=== PATIENT | female | born 1935 | race Caucasian/White ===

== ENCOUNTER → 2016-04-13 | Outpatient (REF) | payer MEDICARE, OTHER ==
[~2016-04-13] MED LIST: *BLDWK10; *BLDWK2; *BLDWK7; *CXR; *ECHO -; /AMLO25TA OR; /ESOM40CA PO; ACIPHEX PO; ALBU17IN2; ALBUTEROL INHALATION; ALLEGRA; ALLEGRA180 PO; AMLO10TA2 PO; AMO500; AMO500 PO; ARIC5TAB PO; ASP325 PO; ASPI325T PO; ATEN25TA; ATENOL25 PO; ATENOLOL25 PO; ATENOLOL50 PO; AUG875 PO; AXID; BIDITAB PO; BISAC5TA OR; CARDCD300; CELEXA20 PO; COZA50TA18; COZA50TA18 PO; COZAAR50 PO; CRES5TAB PO; DEMA20TA PO; DOXYCYC100; DOXYCYC100 PO; DYAZIDE PO; FLONASESPR NASAL; HYDROCHL12 PO; KLORCON20 PO; LASI40TA; LASIX40 PO; LOPE2CA OR; MONOPRIL10 [, 10/12.5 MG]; NAPROSY500; NASONEX NASAL; NEXIUM40 PO; NORVASC5 PO; PROTONIX40 PO; PROVENTIL INHALATION; PYRIDIU200 PO; REGL10TA6 PO; SPIR25TA2 PO; TAGAMET; TENO25TA; TORS20TA2 PO; TYLE325T5 PO; VENTAER INH; VITA-112 PO; VITA100072 PO; VYTORIN PO; ZEST10TA5; ZOLOFT50 PO; [UNRECOGNIZED DRUG - CODE]; [UNRECOGNIZED DRUG - CODE]; [UNRECOGNIZED DRUG - CODE] PO
[2016-04-13 08:46] LABS: BASO % 0.5 % (0.0-1.0); EOS # 0.3 K/mm3 (0.0-0.50); LARGE UNSTAINED CELL # 0.2 K/mm3 (0.0-0.4); LARGE UNSTAINED CELL % 2.5 % (0.0-4.0); LYMPH # 1.6 K/mm3 (1.5-4.5); LYMPH % 16.4 % (24.0-44.0); MEAN CORPUSCULAR HEMOGLOBIN 27.3 pg (27.0-33.0); MEAN CORPUSCULAR HGB CONC 32.1 g/dl (32.0-36.5); MEAN CORPUSCULAR VOLUME 85.1 fl (80.0-96.0); MONO # 0.6 K/mm3 (0.0-0.8); MONO % 6.5 % (0.0-5.0); NEUTROPHILS # 6.2 K/mm3 (1.8-7.7); NEUTROPHILS % 71.1 % (36.0-66.0); PLATELET COUNT, AUTOMATED 303 k/mm3 (150-450); RED CELL DISTRIBUTION WIDTH 16.8 % (11.5-14.5); WHITE BLOOD COUNT 8.7 K/mm3 (4.0-10.0)
[2016-04-13 09:31] LABS: CALCIUM LEVEL 8.8 MG/DL (8.8-10.2); CREATININE FOR GFR 1.84 MG/DL (0.55-1.02); GLOMERULAR FILTRATION RATE 28.2 (>39); POTASSIUM SERUM 4.5 MEQ/L (3.5-5.1)
== END | disposition home or self-care (01) ==
LOC: SKLAB6 07:00
PROVIDERS: ATTEND Family Medicine
DX: Z51.81 Encounter for therapeutic drug level monitoring (principal); Z79.899 Other long term (current) drug therapy; G30.9 Alzheimer's disease, unspecified

== ENCOUNTER → 2016-04-29 | Outpatient (REF) | payer MEDICARE ==
--- NOTE | 2016-05-01 11:02 | REP ---
Portable chest: Comparisons are the portable chest of 01/24/2039 PA and lateral chest of 04/22/2010. There is cardiomegaly and diffuse interstitial coarsening, not changed from 01/24/2013. There are no focal infiltrates. The right costophrenic angle is mildly effaced. This could be artifact from portable positioning or a small right pleural effusion. 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 The yolanda, mediastinum, bony thorax are otherwise unremarkable. Chronic cardiomegaly and chronic interstitial coarsening. Questionable right pleural effusion versus portable positioning artifact. Signed by Jesse Azevedo MD 04/29/2016 12:16 P
== END | disposition home or self-care (01) ==
LOC: M RAD 11:22
PROVIDERS: ATTEND Family Medicine
DX: I51.7 Cardiomegaly (principal); M19.011 Primary osteoarthritis, right shoulder; M19.012 Primary osteoarthritis, left shoulder; J98.4 Other disorders of lung

== ENCOUNTER → 2016-05-04 | Outpatient (REF) | payer MEDICARE ==
[~2016-05-04] MED LIST changes: +MONOPRIL10 10/12.5 MG; -MONOPRIL10 [, 10/12.5 MG]
[2016-05-04 09:04] LABS: CREATININE FOR GFR 2.1 MG/DL (0.55-1.02); GLOMERULAR FILTRATION RATE 24.2 (>39); POTASSIUM SERUM 4.8 MEQ/L (3.5-5.1)
== END | disposition home or self-care (01) ==
LOC: SKLAB5 08:33
PROVIDERS: ATTEND Family Medicine
DX: G30.9 Alzheimer's disease, unspecified (principal)

== ENCOUNTER → 2016-05-30 | Outpatient (REF) | payer MEDICARE ==
--- NOTE | 2016-05-30 09:01 | REP ---
SINGLE VIEW CHEST: Single view of the chest is performed. There is cardiomegaly and vascular congestion. There are infiltrates in the right lung base which are consolidating with possibly a small right effusion. There is mild left basilar atelectasis/infiltrate. Mediastinal silhouette appears unchanged. IMPRESSION: Cardiomegaly and vascular congestion. Dense right lower lobe consolidative infiltrate and possible small right effusion. Mild left basilar atelectasis/infiltrate. Signed by Jesse Foster MD 05/30/2016 04:49 P
[2016-05-30 09:31] LABS: EOS % 0.1 % (0.0-3.0); LARGE UNSTAINED CELL # 0.2 K/mm3 (0.0-0.4); LARGE UNSTAINED CELL % 0.9 % (0.0-4.0); LYMPH # 0.5 K/mm3 (1.5-4.5); LYMPH % 3.3 % (24.0-44.0); MEAN CORPUSCULAR HEMOGLOBIN 25.4 pg (27.0-33.0); MEAN CORPUSCULAR HGB CONC 28.7 g/dl (32.0-36.5); MEAN CORPUSCULAR VOLUME 88.5 fl (80.0-96.0); MONO # 0.4 K/mm3 (0.0-0.8); MONO % 2.4 % (0.0-5.0); NEUTROPHILS # 15.2 K/mm3 (1.8-7.7); NEUTROPHILS % 93.2 % (36.0-66.0); PLATELET COUNT, AUTOMATED 281 k/mm3 (150-450); RED CELL DISTRIBUTION WIDTH 17.8 % (11.5-14.5); WHITE BLOOD COUNT 16.4 K/mm3 (4.0-10.0)
[2016-05-30 09:52] LABS: CALCIUM LEVEL 8.3 MG/DL (8.8-10.2); CREATININE FOR GFR 2.81 MG/DL (0.55-1.02); GLOMERULAR FILTRATION RATE 17.3 (>39); POTASSIUM SERUM 4.4 MEQ/L (3.5-5.1)
== END ==
LOC: SKLAB5 07:51
PROVIDERS: ATTEND Family Medicine
DX: I51.7 Cardiomegaly (principal); J98.11 Atelectasis